=== PATIENT | female | born 1990 | race Caucasian/White ===

== ENCOUNTER 2020-06-26 15:10 | Emergency (ER) | payer OTHER ==
[2020-06-26 15:16] VITALS: BP 116/73; PULSE 113; TEMP 97.8; BMI 27.5
[2020-06-26 16:57] LABS: BASO % 0.5 % (0-2.0); EOS % 2.8 % (0-4.5); HEMATOCRIT 39.3 % (32.4-45.2); HEMOGLOBIN 13.2 GM/dL (10.7-15.3); LYMPH % 18.3 % (8-40); MCH 31.8 pg (25.7-33.7); MCHC 33.6 g/dl (32.0-36.0); MEAN CELL VOLUME 94.5 fl (80-96); MEAN PLT VOLUME 7.7 fl (7.5-11.1); MONO % 6.4 % (3.8-10.2); PLATELET COUNT 323 K/MM3 (134-434); RBC 4.16 M/mm3 (3.60-5.2); RDW 13.8 % (11.6-15.6); WHITE BLOOD COUNT 11.3 K/mm3 (4.0-10.0)
[2020-06-26 17:02] LABS: EPI CELLS >36 /uL (0-25.1); HYALINE CASTS 1 /uL (0-3.1); PH,URINE >= 9.0 (5.0-8.0); URINE APPEARANCE CLOUDY; URINE BACTERIA 1252 /uL (0-1359); URINE BILIRUBIN NEGATIVE (NEGATIVE); URINE COLOR YELLOW; URINE GLUCOSE (UA) NEGATIVE (NEGATIVE); URINE KETONE NEGATIVE (NEGATIVE); URINE LEUK ESTERASE TRACE (NEGATIVE); URINE NITRITE NEGATIVE (NEGATIVE); URINE PROTEIN NEGATIVE (NEGATIVE); URINE RBC 11 /uL (0-23.9); URINE WBC 21 /uL (0-25.8)
[2020-06-26 17:09] LABS: POTASSIUM 4.1 mmol/L (3.5-5.1)
[2020-06-26 17:12] LABS: ALBUMIN 3.8 g/dl (3.4-5.0); BLOOD UREA NITROGEN 6.8 mg/dL (7-18)
[2020-06-26 17:15] LABS: CREATININE 0.6 mg/dL (0.55-1.3)
[2020-06-26 17:17] LABS: BILIRUBIN,TOTAL 0.4 mg/dL (0.2-1); TOT PROT 7.5 g/dl (6.4-8.2)
== END 2020-06-26 18:52 | disposition home or self-care (01) ==
LOC: JER 15:10
DX: O20.0 Threatened abortion (principal); O26.851 Spotting complicating pregnancy, first trimester; Z3A.09 9 weeks gestation of pregnancy
CPT/HCPCS: 36415; 76817-TC; 80053; 81003; 84702; 84703; 85025; 86850; 86900; 86901; 87086; 99284-25

== ENCOUNTER 2021-01-19 03:18 | Inpatient (IN) | payer OTHER ==
[2021-01-19] MEDS ORDERED: ONDANSETRON 4 MG/2 ML VIAL IVPB ONE (04:00)
[2021-01-19] MEDS ORDERED: DEXTROSE 5%-LACTATED RINGERS 500 ML IV ONE ×2 (04:00→05:00)
[2021-01-19] MEDS ORDERED: ONDANSETRON 4 MG/2 ML VIAL ONE (04:08)
[2021-01-19 04:35] LABS: BASO % 0.3 % (0-2.0); EOS % 0.5 % (0-4.5); HEMATOCRIT 33.2 % (32.4-45.2); HEMOGLOBIN 11.5 GM/dL (10.7-15.3); LYMPH % 11.1 % (8-40); MCH 32.1 pg (25.7-33.7); MCHC 34.7 g/dl (32.0-36.0); MEAN CELL VOLUME 92.4 fl (80-96); MEAN PLT VOLUME 7.5 fl (7.5-11.1); MONO % 4.9 % (3.8-10.2); NEUT % 83.2 % (42.8-82.8); PLATELET COUNT 233 10^3/uL (134-434); RBC 3.59 M/mm3 (3.60-5.2); RDW 13.2 % (11.6-15.6); WHITE BLOOD COUNT 11.6 K/mm3 (4.0-10.0)
[2021-01-19 04:50] LABS: CALCIUM 8.4 mg/dL (8.5-10.1)
[2021-01-19 04:51] LABS: BLOOD UREA NITROGEN 10.9 mg/dL (7-18)
[2021-01-19 04:54] LABS: CREATININE 0.7 mg/dL (0.55-1.3)
[2021-01-19 04:55] LABS: BILIRUBIN,TOTAL 0.2 mg/dL (0.2-1); TOT PROT 6.8 g/dl (6.4-8.2)
[2021-01-19 05:02] LABS: EPI CELLS >36 /uL (0-25.1); HYALINE CASTS 7 /uL (0-3.1); URINE APPEARANCE CLOUDY; URINE BACTERIA 266 /uL (0-1359); URINE BILIRUBIN NEGATIVE (NEGATIVE); URINE COLOR YELLOW; URINE GLUCOSE (UA) NEGATIVE (NEGATIVE); URINE KETONE NEGATIVE (NEGATIVE); URINE LEUK ESTERASE TRACE (NEGATIVE); URINE NITRITE NEGATIVE (NEGATIVE); URINE PROTEIN TRACE (NEGATIVE); URINE RBC 153 /uL (0-23.9); URINE UROBILINOGEN 0.2 mg/dL (0.2-1.0); URINE WBC 54 /uL (0-25.8)
[2021-01-19] MEDS ORDERED: BUTORPHANOL TARTRATE 2 MG/ML VIAL ONE (05:02)
[2021-01-19] MEDS ORDERED: PROMETHAZINE HCL 25 MG/1 ML VIAL ONE (05:02)
[2021-01-19] MEDS ORDERED: BUTORPHANOL TARTRATE 1 MG/ML VIAL IVPB ONE (05:10)
[2021-01-19] MEDS ORDERED: PROMETHAZINE HCL 25 MG/1 ML VIAL IVPB ONE (05:10)
[2021-01-19] MEDS ORDERED: ACETAMINOPHEN 325 MG TABLET (FP) PO PRN (05:13)
[2021-01-19] MEDS ORDERED: oxyCODONE HCL 5 MG TABLET PO PRN ×2 (05:13)
[2021-01-19] MEDS ORDERED: LACTATED RINGERS SOLUTION 1,000 ML/1,000 ML INFUS.BAG IV SCH (05:15)
[2021-01-19] MEDS ORDERED: ceFAZolin 2 GRAM PREMIX BAG IVPB ONE (05:15)
[2021-01-19] MEDS ORDERED: CEFAZOLIN 2 GM in DEXTROSE 5%-WATER - 100 ML IVPB ONE (05:30)
[2021-01-19] MEDS ORDERED: oxyCODONE HCL 5 MG TABLET ONE (08:06)
[2021-01-19 10:27] VITALS: BP 126/82; PULSE 69; TEMP 98.4; BMI 31.2
[2021-01-19 12:20] LABS: URINE CRYSTALS CA OXALATE /hpf
== END 2021-01-19 10:44 | disposition short-term general hospital (02) | DRG 833 ==
LOC: JDEL 03:18 → JLDR 09:30
PROVIDERS: ADMIT Obstetrics & Gynecology; ATTEND Obstetrics & Gynecology
DX: O26.892 Other specified pregnancy related conditions, second trimester (principal); R10.31 Right lower quadrant pain; Z3A.24 24 weeks gestation of pregnancy
CPT/HCPCS: 36415; 59025; 76775-TC; 76801-TC; 76830-TC; 80053; 81003; 85025; 87086; C9803; U0003; U0005